=== PATIENT | male | born 1970 | race Caucasian/White ===

== ENCOUNTER → 2016-04-23 | Outpatient (CLI) | payer BC | LOC: MW.LAB 16:09 | PROVIDERS: ATTEND Specialist | DX: B18.2 Chronic viral hepatitis C (principal) | CPT/HCPCS: 36415; 80076; 84443; 85027; 87522 ==

== ENCOUNTER → 2016-05-21 | Outpatient (CLI) | payer BC | LOC: MW.LAB 16:15 | PROVIDERS: ATTEND Specialist | DX: B18.2 Chronic viral hepatitis C (principal); E78.5 Hyperlipidemia, unspecified; F17.200 Nicotine dependence, unspecified, uncomplicated | CPT/HCPCS: 36415; 80076; 85027; 87522 ==

== ENCOUNTER → 2016-06-20 | Outpatient (CLI) | payer BC | END | disposition home or self-care (01) | LOC: MW.LAB 16:24 | PROVIDERS: ATTEND Specialist | DX: B18.2 Chronic viral hepatitis C (principal); E78.5 Hyperlipidemia, unspecified; F17.200 Nicotine dependence, unspecified, uncomplicated | CPT/HCPCS: 36415; 80076; 84443; 85027 ==

== ENCOUNTER 2016-10-08 08:34 | Day surgery (SDC) | payer BC ==
[~2016-10-08 08:34] MED LIST: Lactated Ringers 1,000 ML IV SCH; Lidocaine 2% 5 ML SDV ONE; Midazolam 1 MG/ML 2 ML SDV ONE; Propofol 200 MG/20 ML SDV ONE; ceFAZolin 2 GM in Premix Bag 1 BAG IV ONE; fentaNYL 100 MCG/2 ML SDV ONE
--- NOTE | 2016-10-08 09:01 | PCM.PREANE ---
Preanesthetic Assessment - Anesthesia/Transfusion/Family Hx Anesthesia History: Prior Anesthesia Without Reaction Family History of Anesthesia Reaction: No Transfusion History: No Prior Transfusion(s) - Review of Systems General: No Symptoms Pulmonary: No Symptoms Cardiovascular: No Symptoms Gastrointestinal: No Symptoms Neurological: No Symptoms Other: Reports: None - Physical Assessment NPO Status Date: 10/07/16 Height: 1.73 m Weight: 89.358 kg ASA Class: 2 Mental Status: Alert & Oriented x3 Airway Class: Mallampati = 2 Dentition: Reports: Normal Dentition ROM/Head Extension: Full Lungs: Clear to Auscultation, Normal Respiratory Effort Cardiovascular: Regular Rate, Regular Rhythm - Allergies Allergies/Adverse Reactions: Allergies Allergy/AdvReac Type Severity Reaction Status Date / Time No Known Allergies Allergy Verified 10/03/16 12:41 - Anesthesia Plan Pre-Op Medication Ordered: None - Acknowledgements Anesthesia Type Planned: MAC Pt an Appropriate Candidate for the Planned Anesthesia: Yes Alternatives and Risks of Anesthesia Discussed w Pt/Guardian: Yes Pt/Guardian Understands and Agrees with Anesthesia Plan: Yes PreAnesthesia Questionnaire HEENT History: Reports: Other (See Below) Other HEENT History: has tinninitis Gastrointestinal History: Reports: GERD, Hepatitis, PUD Other Gastrointestinal History: HX of Hepatitis C, states has been cleared...needs one more follow up check Genitourinary History: Reports: None Musculoskeletal History: Reports: Fracture Other Musculoskeletal History: hx of left foot fx , bilateral arms, ribs Neurological History: Reports: Concussion Endocrine/Metabolic History: - Past Surgical History HEENT Surgical History: Reports: None GI Surgical History: Reports: Appendectomy Male Surgical History: Reports: Vasectomy Neurological Surgical History: Reports: None Musculoskeletal Surgical History: Reports: None - SUBSTANCE USE Smoking Status *Q: Current Every Day Smoker Tobacco Use Within Last Twelve Months: Cigarettes Recreational Drug Use History: Yes Recreational Drug Type: Reports: Marijuana/Hashish Recreational Drug Last Use: a few days ago - HOME MEDS Home Medications: Home Meds buPROPion HCl [Wellbutrin SR] 150 mg PO BID 10/03/16 [History] - CURRENT (IN HOUSE) MEDS Current Meds: Current Medications Lactated Ringer's (Ringers, Lactated) 1,000 mls @ 125 mls/hr IV ASDIRECTED [facility] Last Admin: 10/08/16 08:59 Dose: 125 mls/hr Discontinued Medications Fentanyl (Sublimaze) Confirm Administered Dose 100 mcg .ROUTE .STK-MED ONE Stop: 10/08/16 08:03 Cefazolin Sodium/Dextrose 2 gm (/ Premix) 50 mls @ as directed IV .STK-MED ONE Stop: 10/08/16 08:09 Lidocaine (Xylocaine-Mpf 2%) Confirm Administered Dose 5 ml .ROUTE .STK-MED ONE Stop: 10/08/16 08:03 Midazolam HCl (Versed 1 Mg/Ml) Confirm Administered Dose 2 mg .ROUTE .STK-MED ONE Stop: 10/08/16 08:03 Propofol (Diprivan 20 Ml) Confirm Administered Dose 400 mg .ROUTE .STK-MED ONE Stop: 10/08/16 08:03
[2016-10-08] MEDS ORDERED: Propofol 200 MG/20 ML SDV ONE (09:28)
[2016-10-08] MEDS ORDERED: fentaNYL 100 MCG/2 ML SDV ONE (09:29)
[2016-10-08] MEDS ORDERED: Succinylcholine/Normal Saline 200 MG/10 ML Syringe ONE (09:34)
[2016-10-08 10:18] VITALS: BP 95/63
--- NOTE | 2016-10-08 10:30 | PCM.PREANE ---
Preanesthetic Assessment - Anesthesia/Transfusion/Family Hx Anesthesia History: Prior Anesthesia Without Reaction Family History of Anesthesia Reaction: No Transfusion History: No Prior Transfusion(s) - Review of Systems General: No Symptoms Pulmonary: No Symptoms Cardiovascular: No Symptoms Gastrointestinal: Difficulty Swallowing Neurological: No Symptoms Other: Reports: None - Physical Assessment NPO Status Date: 10/07/16 NPO Status Time: 23:30 O2 Sat by Pulse Oximetry: 93 Respiratory Rate: 21 Vital Signs: Last Vital Signs Temp 36.0 C 10/08/16 09:29 Pulse 67 10/08/16 10:21 Resp 21 H 10/08/16 10:21 BP 95/63 10/08/16 10:21 Pulse Ox 93 L 10/08/16 10:21 Height: 1.73 m Weight: 89.358 kg ASA Class: 2 Mental Status: Alert & Oriented x3 Airway Class: Mallampati = 2 Dentition: Reports: Normal Dentition ROM/Head Extension: Full Lungs: Clear to Auscultation, Normal Respiratory Effort Cardiovascular: Regular Rate, Regular Rhythm - Allergies Allergies/Adverse Reactions: Allergies Allergy/AdvReac Type Severity Reaction Status Date / Time No Known Allergies Allergy Verified 10/03/16 12:41 - Anesthesia Plan Pre-Op Medication Ordered: None - Acknowledgements Anesthesia Type Planned: MAC Pt an Appropriate Candidate for the Planned Anesthesia: Yes Alternatives and Risks of Anesthesia Discussed w Pt/Guardian: Yes Pt/Guardian Understands and Agrees with Anesthesia Plan: Yes PreAnesthesia Questionnaire HEENT History: Reports: Other (See Below) Other HEENT History: has tinninitis Gastrointestinal History: Reports: GERD, Hepatitis, PUD Other Gastrointestinal History: HX of Hepatitis C, states has been cleared...needs one more follow up check Genitourinary History: Reports: None Musculoskeletal History: Reports: Fracture Other Musculoskeletal History: hx of left foot fx , bilateral arms, ribs Neurological History: Reports: Concussion Endocrine/Metabolic History: - Past Surgical History HEENT Surgical History: Reports: None GI Surgical History: Reports: Appendectomy Male Surgical History: Reports: Vasectomy Neurological Surgical History: Reports: None Musculoskeletal Surgical History: Reports: None - SUBSTANCE USE Smoking Status *Q: Current Every Day Smoker Tobacco Use Within Last Twelve Months: Cigarettes Recreational Drug Use History: Yes Recreational Drug Type: Reports: Marijuana/Hashish Recreational Drug Last Use: a few days ago - HOME MEDS Home Medications: Home Meds buPROPion HCl [Wellbutrin SR] 150 mg PO BID 10/03/16 [History] - CURRENT (IN HOUSE) MEDS Current Meds: Current Medications Lactated Ringer's (Ringers, Lactated) 1,000 mls @ 125 mls/hr IV ASDIRECTED [facility] Last Admin: 10/08/16 08:59 Dose: 125 mls/hr Discontinued Medications Fentanyl (Sublimaze) Confirm Administered Dose 100 mcg .ROUTE .STK-MED ONE Stop: 10/08/16 08:03 Fentanyl (Sublimaze) Confirm Administered Dose 100 mcg .ROUTE .STK-MED ONE Stop: 10/08/16 09:30 Cefazolin Sodium/Dextrose 2 gm (/ Premix) 50 mls @ as directed IV .STK-MED ONE Stop: 10/08/16 08:09 Lidocaine (Xylocaine-Mpf 2%) Confirm Administered Dose 5 ml .ROUTE .STK-MED ONE Stop: 10/08/16 08:03 Midazolam HCl (Versed 1 Mg/Ml) Confirm Administered Dose 2 mg .ROUTE .STK-MED ONE Stop: 10/08/16 08:03 Propofol (Diprivan 20 Ml) Confirm Administered Dose 400 mg .ROUTE .STK-MED ONE Stop: 10/08/16 08:03 Propofol (Diprivan 20 Ml) Confirm Administered Dose 400 mg .ROUTE .STK-MED ONE Stop: 10/08/16 09:29 Succinylcholine Chloride (Succinylcholine In Ns Pf) Confirm Administered Dose 200 mg .ROUTE .STK-MED ONE Stop: 10/08/16 09:35
--- NOTE | 2016-10-08 10:38 | PCM.POSTAN ---
POST ANESTHESIA ASSESSMENT - MENTAL STATUS Mental Status: Alert, Oriented - RESPIRATORY Respiratory Status: Respiratory Rate WNL, Airway Patent, O2 Saturation Stable - CARDIOVASCULAR CV Status: Pulse Rate WNL - GASTROINTESTINAL GI Status: No Symptoms - POST OP HYDRATION Hydration Status: Adequate & Stable
--- NOTE | 2016-10-08 10:38 | PCM48HPAN ---
Post Anesthesia Note - EVALUATION WITHIN 48HRS OF ANESTHETIC Vital Signs in Normal Range: Yes Patient Participated in Evaluation: Yes Respiratory Function Stable: Yes Airway Patent: Yes Cardiovascular Function Stable: Yes Hydration Status Stable: Yes Pain Control Satisfactory: Yes Nausea and Vomiting Control Satisfactory: Yes Mental Status Recovered: Yes
--- NOTE | 2016-10-08 11:08 | PCM.OPNOTE ---
- General Post-Op/Procedure Note Date of Surgery/Procedure: 10/08/16 Operative Procedure(s): egd w bx and colonoscopy w bx Findings: see dict [id number]; [id number] Pre Op Diagnosis: change in bowel habits and abd pain Post-Op Diagnosis: Same Anesthesia Technique: Moderate Sedation Primary Surgeon: Rocael Martins Pathology: 5 mm sessile polyp at 2 rings distal to ileocecal valve Complications: None Condition: Good Free Text/Narrative:: Intake & Output 10/07/16 10/08/16 10/08/16 22:59 06:59 14:59 Intake Total 1000 Balance 1000
--- NOTE | 2016-10-08 11:51 | OR ---
SURGEON: Rocael Martins MD DATE OF PROCEDURE: 10/08/2016 PREOPERATIVE DIAGNOSIS: Abdominal pain and change in bowel habits. POSTOPERATIVE DIAGNOSIS: Abdominal pain and change in bowel habits. PROCEDURE PERFORMED: 1. Esophagogastroduodenoscopy with biopsy. 2. Colonoscopy with biopsy. COMPLICATIONS: None. FINDINGS: EGD 1. The patient has a big time acid reflux and almost to the point of likely esophageal ulcer and the patient is easily sedated with FPGA ENGINEER and Diprivan. The patient is soundly snoring. 2. Proximal esophagus and oropharynx is normal in appearance. Distal esophagus at 40 shows a large amount of flame-like structure, salmon color change consistent with acid reflux. Stomach rugae is normal in appearance and no bile, blood, or food particle, and duodenum is grossly normal. Antrum is noninflamed and retroflex look at the fundus of stomach, there was no hiatal hernia. Biopsy was done at antrum, body, and GE junction at 40 and sucked out the air. After procedure of EGD, the patient was hypoxic and so the patient was under general intubation for the colonoscopy. FINDINGS: Colonoscopy. The patient was under intubation because of hypoxia and the bowel prep was average to good and little liquid stool. No semi-formed stool. Colon was rather straight forward. Cecum indicated by ileocecal fold, one-to-one indentation, appendix orifice. Light immittance was not observed. The patient does not have diverticulosis. The patient has a small 5 mm polyp at about two ring distal to the ileocecal valve on the right colon and distance of 80 when the scope was removed with cold biopsy forceps. The patient does not have diverticulosis, inflammation, stricture, ulceration, bleeding, AV malformation, or other growth and the patient has large external hemorrhoid and mild internal hemorrhoids. The patient would benefit from repeat colonoscopy in five years from today or three years from today depends on pathology report as well as clinical indication. KAVIN / RAQUEL /[id number]
--- NOTE | 2016-10-09 10:30 | OR ---
SURGEON: Rocael Martins MD DATE OF PROCEDURE: 10/08/2016 ADDENDUM: EGD: The patient was taken to the endoscopy room, and with the WEED CONTROLLER, Diprivan was administered. A well-lubricated EGD scope was gently inserted through the oropharynx, down the esophagus, passing through the gastroesophageal junction, into the stomach. The mucosa was examined upon the passage. Any etiology will be noted. Once in the stomach, we continued to advance to the distal antrum, passed through the pylorus into the second portion of the duodenum. Again, the mucosa was examined for any abnormality and etiology. The scope was then retrieved back to the stomach and then retroflexed to look at the fundus of the stomach. If a biopsy was indicated, we will biopsy the antrum, body, and gastroesophageal junction. The air will be sucked out while the scope is retrieved to reduce the patient's discomfort. The patient tolerated the procedure well. There were no intraoperative complications. Dr. Martins was present through the whole procedure. Prior to surgery, a time-out had been called, the patient identified, procedure identified and antibiotic administered. DESCRIPTION OF PROCEDURE: Colonoscopy: Pt was repositioned for the colonoscope after egd; pt desaturated , and GET intubation; rectal digital exam, normal, then a well lubricated colonoscope then inserted into rectum, advanced past the rectosigmoid junction, the descending colon, splenic flexure, transverse colon, hepatic flexure, ascending colon, arrived to the cecum. Cecum was identified as dictated in the finding. Then the scope was carefully withdrawn while attention was paid to the mucosal surface for any abnormality. Air will be sucked out during the scope withdrawal. At the rectum, retroflexed to examine any rectal diseases, fistula or hemorrhoids. During mucosal examination, abnormality or polyp was noted; picture taken and biopsy performed. Patient tolerated procedure well. There were no intraoperative complications, and Dr. Martins was present throughout the whole procedure. KAVIN / RAQUEL /[id number] MAXIM
== END 2016-10-08 11:25 | disposition home or self-care (01) ==
LOC: MW.SDS 08:34
PROVIDERS: ATTEND Surgery
PROC: 0DB48ZX Excision of Esophagogastric Junction, Via Natural or Artificial Opening Endoscopic, Diagnostic (ICD-10-PCS; principal; 2016-10-08)
PROC: 0DB68ZX Excision of Stomach, Via Natural or Artificial Opening Endoscopic, Diagnostic (ICD-10-PCS; 2016-10-08)
PROC: 0DBF8ZZ Excision of Right Large Intestine, Via Natural or Artificial Opening Endoscopic (ICD-10-PCS; 2016-10-08)
DX: K20.9 Esophagitis, unspecified (principal); D12.2 Benign neoplasm of ascending colon; K21.9 Gastro-esophageal reflux disease without esophagitis; K64.4 Residual hemorrhoidal skin tags; K64.8 Other hemorrhoids; F17.210 Nicotine dependence, cigarettes, uncomplicated; Z86.19 Personal history of other infectious and parasitic diseases; Z80.0 Family history of malignant neoplasm of digestive organs; Z98.52 Vasectomy status; Z90.49 Acquired absence of other specified parts of digestive tract; Z79.899 Other long term (current) drug therapy; R50.82 Postprocedural fever; D72.829 Elevated white blood cell count, unspecified; Z98.890 Other specified postprocedural states
CPT/HCPCS: 43239; 45380; 88305; 88312; J0690; J2250; J3010; J7120; 00740; 36415; 71020; 71020-26; 80053; 83605; 85025; 96374; 99284; 99284-25; G0378; J1956; J2704; J7040

== ENCOUNTER 2016-10-08 15:09 | Observation (INO) | payer BC ==
[2016-10-08] MEDS ORDERED: Sodium Chloride 0.9% 2.5 ML Syringe FLUSH PRN (16:21)
[2016-10-08] MEDS ORDERED: Sodium Chloride 0.9% 10 ML Syringe FLUSH PRN (16:21)
--- NOTE | 2016-10-08 16:25 | EDM.PDOC ---
ED HPI GENERAL MEDICAL PROBLEM - General Chief Complaint: Fever Stated Complaint: FEVER Time Seen by Provider: 10/08/16 16:09 Source of Information: Reports: Patient, Family History Limitations: Reports: No Limitations - History of Present Illness INITIAL COMMENTS - FREE TEXT/NARRATIVE: HISTORY AND PHYSICAL: []46-year-old male presenting with fever that started today History of Present Illness: []Patient was seen by Dr. Martins this morning underwent EGD and colonoscopy screening. He had a polyp removed. After returning home he started to run a fever 102.4. He did take some Tylenol prior to coming to the ED His colonoscopy was undergone due to his mother having colon cancer Review of Systems: As per history of present illness and below otherwise all systems reviewed and negative. Past medical history: As per history of present illness and as reviewed below otherwise noncontributory. Surgical history: As per history of present illness and as reviewed below otherwise noncontributory. Social history: No reported history of drug or alcohol abuse. Family history: As per history of present illness and as reviewed below otherwise noncontributory. Physical exam: Alert and oriented gentleman who does not look in severe distress . Skin is moist, face is mikal looking . HEENT: Atraumatic, normocehpalic, pupils reactive, negative for conjunctival pallor or scleral icterus, mucous membranes moist, throat clear, neck supple, nontender, trachea midline. Lungs: Clear to auscultation, breath sounds equal bilaterally, chest non tender. Heart: S1S2, regular, negative for clicks, rubs, or JVD. Abdomen: Soft, nondistended, tender on palpation to the right upper quadrant. Negative for masses or hepatossplenmegaly. Negative for costovertebral tenderness. Pelvis: Stable nontender. Genitourinary: Deferred. Rectal: Deferred Extremities: Atraumatic, negative for cords or calf pain. Neurovascular unremarkable. Neuro: Awake, alert, oriented. Cranial nerves II through XII unremarkable. Cerebellum unremarkable. Motor and sensory unremarkable throughout. Exam nonfocal. Patient has refused IV normal saline. He is requested to go outside and smoke and have stated there is no smoking on the campus. Discussed patient with Dr. Martins who requested a chest x-ray be obtained and placed the patient on Levaquin IV, clear liquid diet and IV fluids normal saline Discussed with the patient and his request by Dr. Blackwell he is reluctantly agreeable for admission but left to smoke first. Diagnostics: [CBC CMP] Therapeutics: [Normal saline ] Impression: [Post operative fever] Plan: [Refer to observation under Dr. Martins] Definitive disposition and diagnosis as appropriate pending reevaluation and review of above. Onset: Today, Sudden Duration: Hour(s):, Getting Worse Location: Reports: Head, Generalized Quality: Reports: Ache Severity: Mild Left Upper Abdominal Pain Score (Numeric/FACES): 2 - Related Data Allergies Allergy/AdvReac Type Severity Reaction Status Date / Time No Known Allergies Allergy Verified 10/08/16 15:48 Home Meds: Home Meds buPROPion HCl [Wellbutrin SR] 150 mg PO BID 10/03/16 [History] Past Medical History HEENT History: Reports: Other (See Below) Other HEENT History: has tinninitis Gastrointestinal History: Reports: GERD, Hepatitis, PUD Other Gastrointestinal History: HX of Hepatitis C, states has been cleared...needs one more follow up check Genitourinary History: Reports: None Musculoskeletal History: Reports: Fracture Other Musculoskeletal History: hx of left foot fx , bilateral arms, ribs Neurological History: Reports: Concussion Endocrine/Metabolic History: - Infectious Disease History Infectious Disease History: Reports: Chicken Pox, Hepatitis C - Past Surgical History HEENT Surgical History: Reports: None GI Surgical History: Reports: Appendectomy, Colonoscopy Male Surgical History: Reports: Vasectomy Neurological Surgical History: Reports: None Musculoskeletal Surgical History: Reports: None Social & Family History - Tobacco Use Smoking Status *Q: Current Every Day Smoker Years of Tobacco use: 30 Packs/Tins Daily: 0.5 - Caffeine Use Caffeine Use: Reports: Coffee, Soda - Recreational Drug Use Recreational Drug Use: Yes Drug Use in Last 12 Months: Yes Recreational Drug Type: Reports: Marijuana/Hashish Recreational Drug Use Frequency: Weekly Recreational Drug Last Use: a few days ago ED ROS GENERAL - Review of Systems Review Of Systems: ROS reveals no pertinent complaints other than HPI. ED EXAM, GENERAL - Physical Exam Exam: See Below (See dictation) Course - Vital Signs Last Recorded V/S: Last Vital Signs Temp 37.2 C 10/08/16 15:48 Pulse 122 H 10/08/16 15:48 Resp 18 10/08/16 15:48 BP 127/82 10/08/16 15:48 Pulse Ox 96 10/08/16 15:48 - Orders/Labs/Meds Orders: Active Orders 24 hr Category Date Time Status Sodium Chloride 0.9% [Normal Saline] 1,000 ml Med 10/08/16 16:21 Active IV STAT Medication Orders Sodium Chloride (Normal Saline) 1,000 mls @ 999 mls/hr IV STAT ONE Stop: 10/08/16 17:21 Last Admin: 10/08/16 16:29 Dose: Not Given Labs: Laboratory Tests 10/08/16 10/08/16 10/08/16 Range/Units 16:36 16:36 17:02 WBC 18.82 H (4.0-11.0) K/uL RBC 5.59 (4.50-5.90) M/uL Hgb 16.8 (13.0-17.0) g/dL Hct 46.6 (38.0-50.0) % MCV 83.4 (80.0-98.0) fL MCH 30.1 (27.0-32.0) pg MCHC 36.1 (31.0-37.0) g/dL RDW Std Deviation 37.2 (28.0-62.0) fl RDW Coeff of Silvia 12 (11.0-15.0) % Plt Count 172 (150-400) K/uL MPV 10.20 (7.40-12.00) fL Neut % (Auto) 83.7 H (48.0-80.0) % Lymph % (Auto) 7.7 L (16.0-40.0) % [place] % (Auto) 7.7 (0.0-15.0) % Eos % (Auto) 0.7 (0.0-7.0) % Baso % (Auto) 0.2 (0.0-1.5) % Neut # (Auto) 15.8 H (1.4-5.7) K/uL Lymph # (Auto) 1.5 (0.6-2.4) K/uL [place] # (Auto) 1.4 H (0.0-0.8) K/uL Eos # (Auto) 0.1 (0.0-0.7) K/uL Baso # (Auto) 0.0 (0.0-0.1) K/uL Lactate 1.7 (0.20-2.00) mmol/L Sodium 133 L (136-146) mmol/L Potassium 4.4 (3.5-5.1) mmol/L Chloride 101 (98-110) mmol/L Carbon Dioxide 25 (21-31) mmol/L BUN 12 (6.0-23.0) mg/dL Creatinine 1.3 (0.6-1.5) mg/dL Est Cr Clr Drug Dosing 67.79 mL/min Estimated GFR (MDRD) 60.0 ml/min Glucose 109 (60-110) mg/dL Calcium 9.4 (8.8-10.8) mg/dL Total Bilirubin 0.6 (0.1-1.5) mg/dL AST 22 (5-40) IU/L ALT 27 (8-54) IU/L Alkaline Phosphatase 71 (40-150) Total Protein 7.9 (6.0-8.0) g/dL Albumin 4.0 (3.5-5.0) g/dL Globulin 3.9 H (2.0-3.5) g/dL Albumin/Globulin Ratio 1.0 L (1.3-2.8) Meds: Medications Generic Name Dose Route Start Last Admin Trade Name Freq PRN Reason Stop Dose Admin Sodium Chloride 1,000 mls @ 999 mls/hr 10/08/16 16:21 10/08/16 16:29 Normal Saline IV 10/08/16 17:21 Not Given STAT ONE Discontinued Medications Generic Name Dose Route Start Last Admin Trade Name Freq PRN Reason Stop Dose Admin Sodium Chloride 10 ml 10/08/16 16:21 Saline Flush FLUSH ASDIRECTED PRN Keep Vein Open Sodium Chloride 2.5 ml 10/08/16 16:21 Saline Flush FLUSH ASDIRECTED PRN Keep Vein Open Departure - Departure Time of Disposition: 17:30 Disposition: Refer to Observation Condition: Good Clinical Impression: Postoperative fever - Discharge Information Instructions: Fever, Adult, [id number] Forms: ED Department Discharge Additional Instructions: The following information is given to patients seen in the emergency department who are being discharged to home. This information is to outline your options for follow-up care. We provide all patients seen in our emergency department with a follow-up referral. The need for follow-up, as well as the timing and circumstances, are variable depending upon the specifics of your emergency department visit. If you don't have a primary care physician on staff, we will provide you with a referral. We always advise you to contact your personal physician following an emergency department visit to inform them of the circumstance of the visit and for follow-up with them and/or the need for any referrals to a consulting specialist. The emergency department will also refer you to a specialist when appropriate. This referral assures that you have the opportunity for followup care with a specialist. All of these measure are taken in an effort to provide you with optimal care, which includes your followup. Under all circumstances we always encourage you to contact your private physician who remains a resource for coordinating your care. When calling for followup care, please make the office aware that this follow-up is from your recent emergency room visit. If for any reason you are refused follow-up, please contact the [facility] emergency department at and asked to speak to the emergency department charge nurse. - My Orders Last 24 Hours: My Active Orders 10/08/16 16:21 Sodium Chloride 0.9% [Normal Saline] 1,000 ml IV STAT - Assessment/Plan Last 24 Hours: My Active Orders 10/08/16 16:21 Sodium Chloride 0.9% [Normal Saline] 1,000 ml IV STAT
[2016-10-08] MEDS: Sodium Chloride 0.9% 1,000 ML IV ONE ×2 (16:29→17:44)
[2016-10-08] MEDS ORDERED: Levofloxacin/Dextrose 5%-Water 750 MG in Premix Bag 1 BAG IV ONE (17:32)
[2016-10-08] MEDS ORDERED: Acetaminophen 325 MG Tab PO PRN (19:05)
[2016-10-08] MEDS ORDERED: Diazepam 2 MG Tab PO PRN (19:06)
[2016-10-08] MEDS ORDERED: Acetaminophen/oxyCODONE 325-5 MG Tab PO PRN (19:07)
[2016-10-08] MEDS ORDERED: Lactated Ringers 1,000 ML IV SCH (19:15)
[2016-10-08] MEDS: buPROPion 150 MG Tab.SR PO SCH (21:32)
[2016-10-09] MEDS: buPROPion 150 MG Tab.SR PO SCH (08:17)
[2016-10-09 08:20] VITALS: BP 108/65
--- NOTE | 2016-10-09 09:39 | PCM.SN ---
- Free Text/Narrative Note: pt seen, chart reviewed; postop fever, admitted for observation, [id number]
--- NOTE | 2016-10-09 09:39 | PCM.SN ---
- Free Text/Narrative Note: dc summary [id number]
--- NOTE | 2016-10-09 11:15 | HP ---
DATE OF : 1970 PRIMARY CARE PHYSICIAN: None PCP Admission through the emergency room for postop fever. HISTORY OF PRESENT ILLNESS: The patient is a 46-year-old gentleman, BMI 30, had EGD with biopsy and intubated, colonoscopy done today and the patient was discharged without problem and 4 hours later the patient called from home saying that the patient has temperature of 102.1, not quite sure if this is measured or if this is estimated. The patient would like to go to the emergency room and get checked out. Denied any pain. Denies any abdominal pain, pruritus, or dizziness. In the emergency room, the patient was noted a temperature of 99, but heart rate of 122 and is very very upset about the procedure and everything done and concerned what would happen if they go home, and the patient needed to be admitted for observation. PAST MEDICAL HISTORY: Please refer to same day surgery for details and nursing note for details. PAST SURGICAL HISTORY: Please refer to same day surgery for details and nursing note for details. ALLERGIES: Please refer to same day surgery for details and nursing note for details. MEDICATION: Please refer to same day surgery for details and nursing note for details. PHYSICAL EXAMINATION: The patient does not have any pain and is breathing on room air with good saturation. Workup also included blood work and white count was 18. ASSESSMENT AND PLAN: Postop fever, although no abdominal pain. White count was elevated and leukocytosis with a heart rate of 122. The patient will be admitted for observation, put on monitored bed, put on IV fluids, and put on prophylactically antibiotic. As always, thank you for the kind referral. KAVIN GARCÍA /[id number]
--- NOTE | 2016-10-09 11:41 | CR ---
EXAM DATE: 10/08/16 PATIENT'S AGE: 46 Patient: FREDERICK LORENZO Facility: [facility], [place] Site . Site : 1970 Study: XRay Chest [id number]/15/2017 6:37:16 PM Ordering Physician: Lakshmi Cote Final Report: HISTORY: Pain, shortness of breath. FINDINGS: PA and lateral chest radiographs demonstrate normal cardiac silhouette. Pulmonary vasculature is free of cephalization. There is linear density seen at the left lower lung field. No lobar consolidation pneumothorax pleural effusion is seen. IMPRESSION: 1. There is linear atelectasis or scarring in the left lower lung field. 2. Otherwise, no acute cardiopulmonary disease. Dictated by Halie Robert MD @ 10/08/2016 7:15:24 PM Dictated by: Halie Robert MD @ 10/08/2016 19:16:01 (Electronic Signature) Report Signed by Proxy. MAXIM
[2016-10-09] MEDS ORDERED: Levofloxacin/Dextrose 5%-Water 750 MG in Premix Bag 1 BAG IV SCH (17:00)
--- NOTE | 2016-10-10 04:17 | DISCH ---
DATE OF DISCHARGE: 10/09/2016 PRIMARY CARE PHYSICIAN: None PCP DIAGNOSIS: Postop fever. HISTORY OF PRESENT ILLNESS: Please refer to admission history and physical for details. Basically, the patient complained at home of 102.1 temperature and seen in emergency room, white count was 18, and tachycardic at 122, although the patient to have abdominal pain, concerned about aspiration, admitted for observation. The patient was put on IV antibiotic and stayed put overnight uneventful and however in the morning was demanded to be discharged and is irritated to have to stay overnight despite the fact that the patient was concerned about temperature yesterday and now he would like to be discharged. He denied any short of breath, chest pain, abdominal pain anything, and in fact he is hungry, wants breakfast. On examination, his abdomen is benign exam and the patient is afebrile. HOSPITAL COURSE: The patient will continue on p.o. antibiotic and get a followup appointment and discharged on full-liquid diet. Upon discharge, the patient tolerated a clear- liquid diet well. KAVIN GARCÍA /[id number]
== END 2016-10-09 09:55 | disposition home or self-care (01) ==
LOC: MW.ED 15:09 → MW.MS 17:27
PROVIDERS: ADMIT Surgery; ATTEND Surgery
DX: R50.82 Postprocedural fever (principal); D72.829 Elevated white blood cell count, unspecified; Z98.890 Other specified postprocedural states
CPT/HCPCS: 36415; 71020; 80053; 83605; 85025; 96374; 99284; G0378; J1956; J7040; J7120